=== PATIENT | male | born 1970 | race Caucasian/White ===

== ENCOUNTER 2017-07-23 14:51 | Emergency (ER) | payer MEDICAID ==
[~2017-07-23 14:51] MED LIST: ALBU8.5H8 IH; AZIT250T PO; CLIN-80 PO; NO HOME MEDS
== END 2017-07-23 15:01 | disposition left against medical advice (07) ==
LOC: ER 14:52
DX: Z53.21 Procedure and treatment not carried out due to patient leaving prior to being seen by health care provider (principal)

== ENCOUNTER 2020-06-01 18:11 | Emergency (ER) | payer MEDICAID ==
[~2020-06-01] VITALS: Ht 157.5 cm; Wt 56.8 kg
[~2020-06-01 18:11] MED LIST changes: -CLIN-80 PO; +CLIN-97 PO
[2020-06-01 18:45] VITALS: BP 127/78
--- NOTE | 2020-06-01 19:29 | NUR ---
CALL[facility] ABOUT PT LEAVING ON 17:99 WANTED TO LEAVE. PT BECAME AGRESSIVE TOWARDS STAFF AND OTHER PT IN OTHER ROOMS
[2020-06-01 19:33] LABS: CLARITY,URINE CLEAR (Clear); COLOR,URINE YELLOW (Yellow); GLUCOSE, URINE NEGATIVE (Neg); KETONES,URINE NEGATIVE (Neg); LEUKOCYTE ESTERASE ,URINE TRACE (Neg); NITRITES, URINE NEGATIVE (Neg); OCCULT BLOOD,URINE NEGATIVE (Neg); PH,URINE 5.5 (4.8-8.0); PROTEIN,URINE NEGATIVE (Neg); UROBILINOGEN,URINE 0.2 E.U/dL (0.2-1.0)
[2020-06-01 19:40] LABS: UA COLLECTION TYPE URINAL
[2020-06-01 19:43] LABS: BACTERIA,URINE NONE SEEN /HPF (Neg); MUCUS STRANDS FEW /LPF (Neg); RBC,URINE NONE SEEN /HPF (0-2); SQUAMOUS EPITHELIAL CELL,UR FEW /LPF (FEW); WBC,URINE 0-4 /HPF (0-4)
[2020-06-01 19:48] LABS: URINE AMPHETAMINE SCREEN NEGATIVE (Neg); URINE BARBITUATE SCREEN NEGATIVE (Neg); URINE BENZODIAZEPINES SCREEN NEGATIVE (Neg); URINE CANNABINOID SCREEN POSITIVE (Neg); URINE COCAINE SCREEN NEGATIVE (Neg); URINE METHADONE SCREEN NEGATIVE (Neg); URINE OPIATE SCREEN NEGATIVE (Neg); URINE PHENCYCLIDINE SCREEN NEGATIVE (Neg)
== END 2020-06-01 20:30 | disposition left against medical advice (07) ==
LOC: ER 18:12
DX: F79 Unspecified intellectual disabilities (principal); R45.851 Suicidal ideations; F41.9 Anxiety disorder, unspecified; F12.90 Cannabis use, unspecified, uncomplicated; Z72.89 Other problems related to lifestyle; Z88.0 Allergy status to penicillin; Z88.8 Allergy status to other drugs, medicaments and biological substances
CPT/HCPCS: 80305; 81001; 99283

== ENCOUNTER 2020-08-19 16:56 | Emergency (ER) | payer MEDICAID ==
[~2020-08-19] VITALS: Ht 157.5 cm; Wt 54.5 kg
[~2020-08-19 16:56] MED LIST changes: -ALBU8.5H8 IH; -AZIT250T PO; -CLIN-97 PO
[2020-08-19] MEDS ORDERED: folic acid 1mg/0.2ml inj IV ONE (17:05)
[2020-08-19] MEDS ORDERED: thiamine 100mg/ml 2ml inj. IV ONE (17:05)
[2020-08-19] MEDS ORDERED: normal saline 1000ML IV soln IV ONE (17:05)
[2020-08-19 17:31] LABS: HEMOGLOBIN 13.9 g/dl (14.0-17.9); RED BLOOD COUNT 4.21 X10'6 (4.70-6.10)
[2020-08-19 17:33] LABS: BASOPHILS % (AUTO) 0.5 % (0-1); EOSINOPHILS # (AUTO) 0.3 X10'3 (0-0.9); EOSINOPHILS % (AUTO) 4.5 % (0-6); HEMATOCRIT 41.7 % (42.0-52.0); LYMPHOCYTES # (AUTO) 2.9 X10'3 (1.1-4.8); LYMPHOCYTES % (AUTO) 42.9 % (21-51); MEAN CORPUSCULAR HEMOGLOBIN 32.9 PG (27.0-31.0); MEAN CORPUSCULAR HGB CONC 33.3 g/dL (33.0-36.5); MEAN CORPUSCULAR VOLUME 98.9 FL (78-98); MEAN PLATELET VOLUME 7.8 FL (7.4-10.4); MONOCYTES # (AUTO) 0.5 X10'3 (0-0.9); MONOCYTES % (AUTO) 7.5 % (2-12); NEUTROPHILS % (AUTO) 44.6 % (42-75); PLATELET COUNT 219 X10'3 (140-440); RED CELL DISTRIBUTION WIDTH 14.7 % (11.5-14.5); WHITE BLOOD COUNT 6.7 X10'3 (4.5-11.0)
[2020-08-19 17:39] VITALS: BP 100/68
[2020-08-19 17:51] LABS: ALANINE AMINOTRANSFERASE 116 U/L (12-78); ALBUMIN 3.3 G/DL (3.4-5.0); ALBUMIN/GLOBULIN RATIO 0.9 (1.1-1.5); ANION GAP 11 (8-16); ASPARTATE AMINO TRANSFERASE 106 U/L (10-37); BILIRUBIN,TOTAL 0.2 MG/DL (0.1-1.0); BLOOD UREA NITROGEN 14 MG/DL (7-18); BUN/CREATININE RATIO 15.6 (5.4-32.0); CALCIUM 7.6 MG/DL (8.5-10.1); CHLORIDE 105 MMOL/L (99-107); ETHANOL 0.227 GM/DL (0.0-0.010); GLUCOSE 110 MG/DL (70-104); POTASSIUM 3.5 MMOL/L (3.5-5.1); SODIUM 141 MMOL/L (135-145); TOTAL CARBON DIOXIDE 25.4 MMOL/L (24-32); TOTAL PROTEIN 6.9 G/DL (6.4-8.2); eGFR 90 ML/MIN
[2020-08-19 18:03] LABS: ALKALINE PHOSPHATASE 80 IU/L (46-116)
--- NOTE | 2020-08-19 18:55 | NUR ---
PT PASSED GAIT TEST. ABLE TO WALK, STEADY GAIT WITH NO ASSIST. PT GIVEN FOOD. PT THEN LEFT WITH ALL PERSONAL ITEMS WITHOUT SIGNING PAPER WORK OR COLLECTING D/C PAPERWORK
== END 2020-08-19 19:05 | disposition home or self-care (01) ==
LOC: ER 16:56
DX: F10.129 Alcohol abuse with intoxication, unspecified (principal); E86.0 Dehydration; F41.9 Anxiety disorder, unspecified; F12.10 Cannabis abuse, uncomplicated; Z88.0 Allergy status to penicillin; Z88.5 Allergy status to narcotic agent
CPT/HCPCS: 36415; 80053; 80320; 82948; 85025; 93005; 96361; 96374; 96375; 99284; J3411; J3490; J7030

== ENCOUNTER 2024-02-26 18:12 | Emergency (ER) | payer MEDICAID ==
[~2024-02-26] VITALS: Ht 165.1 cm; Wt 72.7 kg
[2024-02-26 18:15] VITALS: BP 161/102; PULSE 95; RESP 18; TEMP 98.2; O2SAT 100
== END 2024-02-26 19:02 ==
LOC: ER 18:13
DX: S00.81XA Abrasion of other part of head, initial encounter (principal); F10.129 Alcohol abuse with intoxication, unspecified; F41.9 Anxiety disorder, unspecified; F12.90 Cannabis use, unspecified, uncomplicated; Z88.0 Allergy status to penicillin; Z88.5 Allergy status to narcotic agent; Z02.89 Encounter for other administrative examinations; W19.XXXA Unspecified fall, initial encounter; Y93.89 Activity, other specified; Y92.89 Other specified places as the place of occurrence of the external cause; Y99.8 Other external cause status; Y90.9 Presence of alcohol in blood, level not specified
CPT/HCPCS: 99283